=== PATIENT | female | born 2000 | race Caucasian/White ===

== ENCOUNTER → 2022-01-04 10:35 | Outpatient (CLI) | payer BC, SELFPAY ==
--- NOTE | ~2022-01-04 | XR_ITS ---
EXAMINATION: SCOLIOSIS DATE: 01/04/2022 11:25 INDICATION: Scoliosis, back pain TECHNIQUE: Standing AP and lateral views of the thoracolumbar spine FINDINGS: There are 12 rib bearing thoracic vertebral bodies and 5 non-rib bearing lumbar type verteb ral bodies. There is no listhesis, compression deformity or vertebral body anomaly. There are 10 deg caren of thoracolumbar levocurvature measured from T9 through L1. IMPRESSION: 1. 10 degrees of thoracolumbar levocurvature. 2. No vertebral body anomalies. Reviewed, dictated and finalized at location F.
== END ==
DX: M41.9 Scoliosis, unspecified (principal)
CPT/HCPCS: 72082